=== PATIENT | female | born 1965 | race Caucasian/White ===

== ENCOUNTER → 2016-06-10 | Outpatient (CLI) | payer OTHER ==
[~2016-06-10] MED LIST: ACHYD1T PO; BUPR300T PO; CA C1TAB26 PO; CLIN-62 PO; CPR500T PO; DCS100C PO; Estradiol PO; FLUO20CA25 PO; HYDR-3454 PO; Ibuprofen PO; MECL-124 PO; MELO7.5T PO; SPRINTEC PO; VIT B PO; sprintec PO
--- NOTE | 2016-06-13 17:07 | Diagnostic Imaging Report ---
EXAM: Bilateral screening mammogram The current study was also evaluated with a Computer Aided Detection (CAD) system. Indication: Screening. No current complaints stated on the questionnaire. COMPARISON: 11/08/2014. FINDINGS: The breasts are composed of scattered fibroglandular densities. Circumscribed nodule in the central inferior aspect of the left breast is again notched lucency, unchanged from 2015. There is likely an intramammary lymph node. No suspicious mass or calcification is seen. Allowing for technique and positional differences, no suspicious change is seen. IMPRESSION: No significant change. ACR BI-RADS Category 2: Benign findings. Result letter will be mailed to the patient. Note: At least 10% of breast cancer is not imaged by mammography. Dictated by: Dictated on workstation # [id number]
== END ==
LOC: RAD 09:48
PROVIDERS: ATTEND Obstetrics & Gynecology
DX: Z12.31 Encounter for screening mammogram for malignant neoplasm of breast (principal)
CPT/HCPCS: 77067

== ENCOUNTER → 2016-09-19 | Outpatient (CLI) | payer OTHER ==
--- NOTE | 2016-09-19 13:48 | Diagnostic Imaging Report ---
PROCEDURE: US Thyroid. TECHNIQUE: Multiple real-time grayscale images were obtained of the thyroid in various projections. INDICATION: Anterior neck fullness, dysphagia. COMPARISON: None. DISCUSSION: The thyroid gland is normal in size though appears diffusely heterogenous and borderline hypervascular, suggesting underlying thyroiditis. The right thyroid measures 5.0 x 1.9 1.8 cm. The left measures 4.7 x 1.9 x 1.4 cm. 7 mm dense calcification noted within the left thyroid gland. There is a 1.0 x 0.8 x 0.7 cm solid-appearing heterogenous isoechoic nodule within the mid left thyroid gland which is indeterminate by ultrasound criteria. No suspicious microcalcifications are identified. No abnormal adjacent lymph nodes identified. IMPRESSION: 1. Heterogenous hypervascular thyroid gland, suggesting underlying thyroiditis. 2. 1 cm solid appearing left thyroid nodule, indeterminate. Recommend 6-12 month sonographic followup. Dictated by: Dictated on workstation # [id number]
== END ==
LOC: RAD 11:03
PROVIDERS: ATTEND Nurse Practitioner Family
DX: E04.1 Nontoxic single thyroid nodule (principal); R13.14 Dysphagia, pharyngoesophageal phase
CPT/HCPCS: 76536

== ENCOUNTER → 2016-10-15 | Outpatient (CLI) | payer OTHER ==
--- NOTE | 2016-10-16 15:30 | Diagnostic Imaging Report ---
INDICATION: Thyroid nodule. FINDINGS: 203 microcuries of I-123 was given orally. The 4 hour uptake is 10%. The 24 hour uptake is 32.6%. The images show homogeneous uptake with no hot or cold nodule identified. IMPRESSION: There is homogeneous uptake. The 24 hour uptake is 32% which is mildly elevated. Upper normal is 30%. Dictated by: Dictated on workstation # [id number]
== END ==
LOC: CARD 10:27
PROVIDERS: ATTEND Nurse Practitioner Family
DX: E04.1 Nontoxic single thyroid nodule (principal)
CPT/HCPCS: 78014

== ENCOUNTER → 2017-06-16 | Outpatient (CLI) | payer OTHER ==
--- NOTE | 2017-06-16 15:33 | Diagnostic Imaging Report ---
INDICATION: Routine screening. COMPARISON: 06/10/2016 and 11/08/2014. TECHNIQUE: Bilateral CC and MLO 3D mammography was performed. The current study was also evaluated with a Computer Aided Detection (CAD) system. FINDINGS: Scattered fibroglandular densities are identified bilaterally. No mass or malignant appearing microcalcifications are seen. The previously noted intramammary lymph node on the left is no longer appreciated. The axillae are unremarkable. IMPRESSION: No mammographic features suspicious for malignancy are identified. ACR BI-RADS Category 1: Negative. Result letter will be mailed to the patient. Note: At least 10% of breast cancer is not imaged by mammography. Dictated by: Dictated on workstation # [id number]
== END ==
LOC: RAD 10:59
PROVIDERS: ATTEND Obstetrics & Gynecology
DX: Z12.31 Encounter for screening mammogram for malignant neoplasm of breast (principal)
CPT/HCPCS: 77067

== ENCOUNTER → 2018-08-26 | Outpatient (CLI) | payer OTHER ==
--- NOTE | 2018-08-26 10:30 | Diagnostic Imaging Report ---
PROCEDURE: US Thyroid. TECHNIQUE: Multiple real-time grayscale images were obtained of the thyroid in various projections. INDICATION: Thyroid nodule. COMPARISON: Correlation is made with prior thyroid ultrasound from 09/19/2016. FINDINGS: Right lobe of the thyroid measures 4.9 x 1.6 x 1.6 cm and the left lobe measures 4.7 x 1.3 x 1.2 cm. Isthmus is 3 mm in thickness. Both lobes of the thyroid again are heterogeneous in appearance. There is a nodule just to the right of midline in the isthmus measuring approximately 8 mm x 4 mm x 9 mm. Nodule in the left lobe measures 9 mm x 8 mm x 10 mm, unchanged from prior. There are some left thyroid calcifications present. Multiple small right-sided thyroid nodules are noted all less than 1 cm in size. Largest is approximately 6 mm in the upper pole. IMPRESSION: Thyroid heterogeneity and bilateral thyroid nodules. Nodule previously noted in the left lobe is stable. Small nodules in the isthmus and right lobe are also present. Continued followup in 6-12 months is recommended to confirm stability. Dictated by: Dictated on workstation # [id number]
== END ==
LOC: RAD 08:36
PROVIDERS: ATTEND Internal Medicine Endocrinology, Diabetes & Metabolism
DX: E04.2 Nontoxic multinodular goiter (principal)
CPT/HCPCS: 76536

== ENCOUNTER → 2018-11-23 | Outpatient (CLI) | payer OTHER ==
--- NOTE | 2018-11-23 11:26 | Diagnostic Imaging Report ---
INDICATION: Routine screening. Comparison is made with prior mammogram from 06/16/2017 and 06/10/2016. 2-D and 3-D bilateral screening mammography was performed with CAD. Scattered fibroglandular densities are identified bilaterally. The parenchymal pattern is stable. No mass or malignant-appearing microcalcifications are seen. The axillae are unremarkable. IMPRESSION: BI-RADS Category 1 No mammographic features suspicious for malignancy are identified. ACR BI-RADS Category 1: Negative. Result letter will be mailed to the patient. Note: At least 10% of breast cancer is not imaged by mammography. Dictated by: Dictated on workstation # [id number]
== END ==
LOC: RAD 07:26
PROVIDERS: ATTEND Obstetrics & Gynecology
DX: Z12.31 Encounter for screening mammogram for malignant neoplasm of breast (principal)
CPT/HCPCS: 77067

== ENCOUNTER → 2019-08-09 | Outpatient (CLI) | payer OTHER ==
--- NOTE | 2019-08-09 14:00 | Diagnostic Imaging Report ---
PROCEDURE: US Thyroid. TECHNIQUE: Multiple real-time grayscale images were obtained of the thyroid in various projections. INDICATION: Followup thyroid nodules. Correlation is made with prior thyroid ultrasound from 08/26/2018. Right lobe of the thyroid measures 5.1 x 1.6 x 1.7 cm and the left lobe measures 4.7 x 1.5 x 1.4 cm. Isthmus 3 mm in thickness. Thyroid lobes demonstrate parenchymal heterogeneity. Subcentimeter cystic nodules right lobe are noted measuring 2 to 3 mm in size. A nodule near the isthmus measures approximately 8 mm x 5 mm, hypoechoic nodule in the upper pole left lobe measures approximately 11 mm x 6 cm x 8 mm compared with 10 mm x 8 mm x 9 mm. Calcifications left lobe were also noted. IMPRESSION: Bilateral thyroid nodules, very similar in size when compared with prior examination from one year earlier. Continued followup can be performed. Dictated by: Dictated on workstation # [id number]
== END ==
LOC: RAD 11:29
PROVIDERS: ATTEND Internal Medicine Endocrinology, Diabetes & Metabolism
DX: E04.2 Nontoxic multinodular goiter (principal)
CPT/HCPCS: 36415; 76536; 84443

== ENCOUNTER → 2020-03-21 | Outpatient (CLI) | payer OTHER ==
--- NOTE | 2020-03-21 14:58 | Diagnostic Imaging Report ---
INDICATION: Routine screening. COMPARISON: 11/23/2018 and 06/16/2017. TECHNIQUE: 2D and 3D bilateral screening mammography was performed with CAD. FINDINGS: Scattered fibroglandular densities are noted bilaterally. The parenchymal pattern is stable. No dominant mass or malignant appearing microcalcifications are seen. The axillae are unremarkable. IMPRESSION: No mammographic features suspicious for malignancy are identified. ACR BI-RADS Category 1: Negative. Result letter will be mailed to the patient. Note: At least 10% of breast cancer is not imaged by mammography. Dictated by: Dictated on workstation # [id number]
== END ==
LOC: RAD 08:15
PROVIDERS: ATTEND Obstetrics & Gynecology
DX: Z12.31 Encounter for screening mammogram for malignant neoplasm of breast (principal)
CPT/HCPCS: 77063; 77067

== ENCOUNTER → 2021-10-01 | Outpatient (CLI) | payer OTHER ==
--- NOTE | 2021-10-01 11:00 | Diagnostic Imaging Report ---
INDICATION: Routine screening. COMPARISON: 03/21/2020 and 11/23/2018. TECHNIQUE: 2D and 3D bilateral screening mammography was performed with CAD. FINDINGS: Scattered fibroglandular densities are identified bilaterally. No mass or malignant-appearing microcalcifications are seen. The axillae are unremarkable. IMPRESSION: No mammographic features suspicious for malignancy are identified. ACR BI-RADS Category 1: Negative. Result letter will be mailed to the patient. Note: At least 10% of breast cancer is not imaged by mammography. Dictated by: Dictated on workstation # [id number]
== END ==
LOC: RAD 08:15
PROVIDERS: ATTEND Obstetrics & Gynecology
DX: Z12.31 Encounter for screening mammogram for malignant neoplasm of breast (principal)
CPT/HCPCS: 77063; 77067

== ENCOUNTER → 2022-07-31 | Outpatient (CLI) | payer OTHER ==
--- NOTE | 2022-07-31 23:28 | Diagnostic Imaging Report ---
PROCEDURE: US Thyroid. TECHNIQUE: Multiple real-time grayscale images were obtained of the thyroid in various projections. INDICATION: Thyroid nodules. COMPARISON: Study of 08/09/2019. FINDINGS: Right thyroid lobe is 4.9 x 1.6 x 1.6 cm, diffusely heterogeneous in echotexture. There is a tiny 7 mm nodule in the lower pole of the right lobe, previously not appreciable but may have been obscured by the background marked parenchymal heterogeneity. Isthmic nodule 9 mm. Hypoechoic right paramedian unchanged from prior. A 1.1 cm hypoechoic nodule upper pole left lobe unchanged and unchanged mid to lower pole nodule hypoechoic unchanged subcentimeter. IMPRESSION: Stable benign appearing and behaving predominately subcentimeter thyroid nodules with background market diffuse parenchymal heterogeneity. No suspicious lesion and based upon stability from 2019 and lesion size and echotexture pattern, no further dedicated workup is recommended based upon imaging findings. Dictated on workstation # [id number]
== END ==
LOC: RAD 10:31
PROVIDERS: ATTEND Internal Medicine Endocrinology, Diabetes & Metabolism
DX: E04.2 Nontoxic multinodular goiter (principal)
CPT/HCPCS: 36415; 76536; 84443; 86376

== ENCOUNTER → 2022-11-28 | Outpatient (CLI) | payer OTHER ==
--- NOTE | 2022-11-28 17:13 | Diagnostic Imaging Report ---
3-D bilateral screening mammogram. 2-D and 3-D bilateral screening mammography was performed with CAD. COMPARISON: This study was compared to the prior exams of 10/01/2021, 03/21/2020 and 11/23/2018. There are no current complaints. FINDINGS: There are scattered fibroglandular densities in both breasts which could obscure a lesion. Overall, there does not appear to have been any significant change when compared to the prior exam. No primary or secondary sign of malignancy is noted. IMPRESSION: There is no radiographic evidence for malignancy. BI-RADS CATEGORY 1 NEGATIVE ACR BI-RADS Category 1: Negative. Result letter will be mailed to the patient. Note: At least 10% of breast cancer is not imaged by mammography. Dictated by: Dictated on workstation # [id number]
== END ==
LOC: RAD 14:38
PROVIDERS: ATTEND Nurse Practitioner Family
DX: Z12.31 Encounter for screening mammogram for malignant neoplasm of breast (principal)
CPT/HCPCS: 77063; 77067